=== PATIENT | male | born 1980 | race Caucasian/White ===

== ENCOUNTER 2020-08-25 20:03 | Emergency (ER) | payer OTHER | END 2020-08-25 21:55 | LOC: ED 20:03 | DX: Z02.89 Encounter for other administrative examinations (principal) ==

== ENCOUNTER 2020-08-25 20:03 | Emergency (ER) | payer SELFPAY ==
[~2020-08-25] VITALS: Ht 177.8 cm; Wt 95.3 kg
[2020-08-25 20:17] VITALS: BP 144/95; Ht 177.8 cm; Wt 95.3 kg
== END 2020-08-25 21:55 ==
LOC: ED 20:03
DX: M25.511 Pain in right shoulder (principal); M19.90 Unspecified osteoarthritis, unspecified site
CPT/HCPCS: 99406